=== PATIENT | female | born 1995 | race Caucasian/White ===

== ENCOUNTER 2017-04-21 09:15 | Emergency (ER) | payer OTHER ==
[2017-04-21 09:22] VITALS: BP 146/89
--- NOTE | 2017-04-21 11:01 | UC ---
Bj Carreon Aidan, scribed for Pantera Millard MD on 04/21/17 at 1014 . HPI Febrile Illness - HPI Summary HPI Summary: 21 y/o female presents to the Urgent Care with a complaint of acute, constant, moderate influenza-like symptoms that began 5 days ago. Symptoms include 2 episodes of fever (one this morning of 101 and one 4 days ago), frequent episodes of vomiting, sore throat, mild neck stiffness, moderate (7/10) diffuse RIVERA, chest congestion that began yesterday, and some ear congestion. Pt denies any nausea. - History of Current Complaint Chief Complaint: UCGeneralIllness Time Seen by Provider: 04/21/17 09:29 Hx Obtained From: Patient Onset/Duration: Started Days Ago, Still Present Timing: Constant Temperature: 101 F - today Initial Severity: Moderate Current Severity: Mild Pain Intensity: 7 Pain Scale Used: 0-10 Numeric Aggravating Factors: Unknown Alleviating Factors: Other: - unknown Associated Signs and Symptoms: Headache, Sore Throat, Stiff Neck, Vomiting, Other: - chest congestion - Allergy/Home Medications Allergies/Adverse Reactions: Allergies Allergy/AdvReac Type Severity Reaction Status Date / Time bee Allergy Difficulty Uncoded 04/21/17 09:25 Swallowing Home Medications: Home Medications Citalopram Hydrobromide [Celexa] 1 tab PO DAILY 04/21/17 [History Confirmed ] Ibuprofen [Advil] 400 mg PO Q6HR PRN 04/21/17 [History Confirmed 04/21/17] PMH/Surg Hx/FS Hx/Imm Hx - Surgical History Surgery Procedure, Year, and Place: wisdom teeth Infectious Disease History: No Infectious Disease History: Denies: Hx Clostridium Difficile, Hx Hepatitis, Hx Human Immunodeficiency Virus (HIV), Hx of Known/Suspected MRSA, Hx Shingles, Hx Tuberculosis, Hx Known/ Suspected VRE, Hx Known/Suspected VRSA, History Other Infectious Disease, Traveled Outside the [place] in Last 30 Days - Family History Known Family History: Positive: Hypertension - Social History Occupation: Student Lives: Alone Alcohol Use: None Substance Use Type: Reports: None Smoking Status (MU): Never Smoked Tobacco Review of Systems Constitutional: Fever Skin: Negative Eyes: Negative ENT: Sore Throat Respiratory: Other - chest congestion Cardiovascular: Negative Gastrointestinal: Vomiting Genitourinary: Negative Motor: Negative Neurovascular: Negative Musculoskeletal: Negative Neurological: Headache, Other - neck stiffness All Other Systems Reviewed And Are Negative: Yes Physical Exam Triage Information Reviewed: Yes Appearance: Ill-Appearing - mildly Vital Signs: Initial Vital Signs Temp 99.8 F 04/21/17 09:16 Pulse 51 04/21/17 09:16 Resp 16 04/21/17 09:16 BP 146/89 04/21/17 09:16 Pulse Ox 99 04/21/17 09:16 Vital Signs Reviewed: Yes Eye Exam: Normal Eyes: Positive: Other: - PERRL, EOMI ENT Exam: Normal ENT: Positive: Pharyngeal erythema - posterior pharynx, Nasal congestion - rhinorrhea, TM red - erythematous right ear drum Neck exam: Normal Neck: Positive: Supple. Negative: No Lymphadenopathy - positive lymphadenopathy Respiratory Exam: Normal Respiratory: Positive: Lungs clear - CTA, Other: - breath sounds present Cardiovascular Exam: Normal Cardiovascular: Positive: RRR Abdominal Exam: Normal Abdomen Description: Positive: Nontender, Soft Bowel Sounds: Positive: Present Musculoskeletal Exam: Normal Musculoskeletal: Positive: Strength Intact, ROM Intact Neurological Exam: Normal Neurological: Positive: Alert Psychological Exam: Normal Psychological: Positive: Age Appropriate Behavior Skin Exam: Normal Course/Dx - Course Course Of Treatment: 21 y/o female present with episodes of fever, vomiting, sore throat, neck stiffness, RIVERA, and chest congestion. MEDICATIONS REVIEWED. CLINICALLY, PATIENT DOES NOT HAVE MENINGITIS. NECK FROM. S/SX OF MENINGITIS DISCUSSED WITH PATIENT. - Diagnoses Clinic Provider Diagnoses: SINUSITIS Discharge - Discharge Plan Condition: Stable Disposition: HOME Prescriptions: Amoxicillin/Clavulanate TAB* [Augmentin TAB 875*] 875 mg PO BID #20 tab Benzonatate CAP* [Tessalon 100 MG CAP*] 100 mg PO TID PRN #15 cap PRN Reason: Pain Patient Education Materials: Sinusitis (ED) Referrals: No Primary Care Phys,NOPCP [Primary Care Provider] - Additional Instructions: FOLLOW UP WITH YOUR DOCTOR. GET RECHECKED FOR ANY WORSENING OF YOUR CONDITION OR QUESTIONS OR CONCERNS. The documentation as recorded by the Bj gaspar Aidan accurately reflects the service I personally performed and the decisions made by , Pantera Millard MD.
== END 2017-04-21 10:18 | disposition home or self-care (01) ==
LOC: UCEAST 09:15
DX: J32.9 Chronic sinusitis, unspecified (principal); R50.9 Fever, unspecified
CPT/HCPCS: 87651; 99212; G0463

== ENCOUNTER 2018-05-04 14:25 | Emergency (ER) | payer OTHER ==
[2018-05-04] MEDS ORDERED: Famotidine IV* 10 MG/ML 2 ML (20 mg) IV SLOW PU ONE (14:34)
[2018-05-04] MEDS ORDERED: methylPREDNISolone 125 MG* 2 ML VIAL IV ONE (14:34)
--- NOTE | 2018-05-04 15:09 | ED ---
Allergic Reaction/Systemic - HPI Summary HPI Summary: This pt is a 22 y/o female presenting to [facility] via EMS for an allergic reaction after she was stung by a bee. [place] 4 times by a bee at approximately 13:30 today. She states she got stung on her RLE and on her back. Soon after pt experienced throat tightening, difficulty breathing, dizziness. Immediately at around 13:35 pt self administered an epi pen and took 4 tabs of Benadryl [employer]. Per EMS, pt's epi pen is 3 years out of date. Currently pt reports feeling better and has no difficulty breathing. - History of Current Complaint Hx Obtained From: Patient Hx Last Menstrual Period: 04/04/17 Onset/Duration: Sudden Onset, Resolved Timing: Lasting Minutes Severity Initially: Moderate Severity Currently: None Pain Intensity: 0 Pain Scale Used: 0-10 Numeric Aggravating Factor(s): Nothing Alleviating Factor(s): OTC Meds - Benadryl, Epinephrine - epi pen Associated Signs And Symptoms: Positive: Difficulty Breathing, Throat Tightening , Other: - dizziness - Allergies/Home Medications Allergies/Adverse Reactions: Allergies Allergy/AdvReac Type Severity Reaction Status Date / Time bee Allergy Difficulty Uncoded 04/21/17 09:25 Swallowing PMH/Surg Hx/FS Hx/Imm Hx Endocrine/Hematology History: Denies: Hx Diabetes Cardiovascular History: Denies: Hx Hypertension - Surgical History Surgery Procedure, Year, and Place: wisdom teeth Infectious Disease History: No Infectious Disease History: Denies: Hx Clostridium Difficile, Hx Hepatitis, Hx Human Immunodeficiency Virus (HIV), Hx of Known/Suspected MRSA, Hx Shingles, Hx Tuberculosis, Hx Known/ Suspected VRE, Hx Known/Suspected VRSA, History Other Infectious Disease, Traveled Outside the [place] in Last 30 Days - Family History Known Family History: Positive: Hypertension - Social History Alcohol Use: None Substance Use Type: Reports: None Smoking Status (MU): Never Smoked Tobacco Review of Systems Negative: Fever, Chills ENT: Other - throat tightening Respiratory: Other - difficulty breathing Positive: Shortness Of Breath Neurological: Other - POS: dizziness All Other Systems Reviewed And Are Negative: Yes Physical Exam - Summary Physical Exam Summary: Appearance: The patient is well-nourished in no acute distress and in no acute pain. Skin: The skin is warm and dry and skin color reflects adequate perfusion. Bee stings on right lower extremity and back. HEENT: The head is normocephalic and atraumatic. The pupils are equal and reactive. The conjunctivae are clear and without drainage. Nares are patent and without drainage. Mouth reveals moist mucous membranes and the throat is without erythema and exudate. The external ears are intact. Neck: the neck is supple with full range of motion and non-tender. There are no carotid bruits. There is no neck vein distension. Respiratory: Chest is non-tender. Lungs are clear to auscultation and breath sounds are symmetrical and equal. Cardiovascular: Heart is regular rate and rhythm. There is no murmur or rub auscultated. There is no peripheral edema and pulses are symmetrical and equal. Abdomen: The abdomen is soft and non-tender. There are normal bowel sounds heard in all four quadrants and there is no organomegaly palpated. Musculoskeletal: There is no back tenderness noted. Extremities are non-tender with full range of motion. There is good capillary refill. There is no peripheral edema or calf tenderness elicited. Neurological: Patient is alert and oriented to person, place and time. Psychiatric: The patient has an appropriate affect and does not exhibit any anxiety or depression. Triage Information Reviewed: Yes Vital Signs On Initial Exam: Initial Vitals Temp Pulse Resp BP Pulse Ox 97.9 F 120 22 134/98 99 05/04/18 14:43 05/04/18 14:43 05/04/18 14:43 05/04/18 14:43 05/04/18 14:43 Vital Signs Reviewed: Yes Diagnostics - Vital Signs Vital Signs Temp Pulse Resp BP Pulse Ox 05/04/18 14:43 97.9 F 120 22 134/98 99 - Laboratory Lab Statement: Any lab studies that have been ordered have been reviewed, and results considered in the medical decision making process. Re-Evaluation - Re-Evaluation First Eval Re-Evaluation Time: 16:58 Change: Improved Comment: Pt reports she is feeling better. Allergic Reaction Course/Dx - Course Course Of Treatment: Ms. Bennett presented to the emergency department after having been stung by several bees complaining of an allergic reaction. Her throat had been getting tight and she used her EpiPen which was 3 years old, and the ambulance was called. They administered PO Benadryl to her. Her exam was unremarkable on arrival here however I have no reason to disbelieve that she had a significant reaction therefore she is given additional IV Pepcid and Solu-Medrol here. She was observed for a period of time and continued to feel well therefore she was discharged and a prescription for an EpiPen was sent. - Diagnoses Provider Diagnoses: Bee sting, Allergic reaction to bee sting Discharge - Sign-Out/Discharge Documenting (check all that apply): Patient Departure - Discharge - Discharge Plan Condition: Stable Disposition: HOME Prescriptions: EPINEPHrine [Epipen 2-[place]] 0.3 mg IM ONCE PRN #1 inj PRN Reason: Allergy Symptoms Patient Education Materials: Insect Bite or Sting (ED), General Allergic Reaction (ED) Referrals: No Primary Care Phys,NOPCP [Medical Doctor] - [facility] [Outside] Additional Instructions: Please follow up with your primary care provider in 2-3 days. RETURN TO THE ED FOR ANY WORSENING SYMPTOMS. - Billing Disposition and Condition Condition: STABLE Disposition: Home
[2018-05-04 17:10] VITALS: BP 127/67
== END 2018-05-04 17:09 | disposition home or self-care (01) ==
LOC: ED 14:25
DX: T63.441A Toxic effect of venom of bees, accidental (unintentional), initial encounter (principal); R06.02 Shortness of breath; R42 Dizziness and giddiness; Y92.9 Unspecified place or not applicable
CPT/HCPCS: 99282; J2930